=== PATIENT | female | born 1960 | race Caucasian/White ===

== ENCOUNTER 2016-10-22 22:33 | Emergency (ER) | payer SELFPAY ==
[2016-10-22] MEDS ORDERED: HYDROCOD/APAP 5/325 PREPACK#6 BTL TAKEHOME ONE (22:53)
[2016-10-22 22:54] VITALS: BP 151/73; PULSE 79; RESP 16; TEMP 97.7; O2SAT 95
[2016-10-22] MEDS ORDERED: ONDANSETRON 4MG PREPACK#2 BTL TAKEHOME ONE (22:54)
--- NOTE | 2016-10-22 22:59 | UCPHY ---
H & P Time Seen by Provider: 10/22/16 22:47 Patient Type: New HPI/ROS: This patient reports a gradual onset of upper bilateral thoracic back pain , achy in nature over the past 2 weeks this is a bit worse when she lifts items this is currently moderate intensity. She has been taking ibuprofen regularly without complete relief. She has had similar pains in the past and had some improvement with steroid injection to her spine and inquires affected provide that procedure. ROS: No numbness tingling or focal weakness. No other neuro symptoms. No recent acute trauma. She reports no pulmonary symptoms. No pleuritic pain. No lightheadedness or other cardiovascular symptoms. No other complaints 7 point ROS is otherwise negative. Past Medical/Surgical History: Kyphosis Smoking Status: Current every day smoker Physical Exam: Physical Exam Vital signs are normal. General: No acute distress HEENT: Atraumatic. Eyes: Pupils equal and react to light. Extraocular motions are intact. Neck: Supple with no midline tenderness. She has mild increase in thoracic pain with forward flexion of her neck. Thoracic back: Positive for kyphosis. She has bilateral paraspinous muscular tenderness in the upper thoracic region with no significant midline spine tenderness. No lumbar tenderness. Lungs: No respiratory distress. Cardiac: Brisk capillary refill is intact throughout. Pulses are 2+ and symmetric in the affected extremity. Skin: No rash or pallor. Neuro: Alert and oriented x3 . She maintains normal light touch sensory exam bilateral upper and lower extremities, 5/5 strength bilateral upper and lower extremities and 2+ symmetric patellar Achilles, biceps, triceps and brachioradialis DTRs bilaterally. No sensorimotor deficits are appreciated Initial differential diagnosis: Muscle strain, disc herniation without radiculopathy, degenerative disc disease Constitutional: Initial Vital Signs Temperature (C) 36.5 C 10/22/16 22:40 Heart Rate 79 10/22/16 22:40 Respiratory Rate 16 10/22/16 22:40 Blood Pressure 151/73 H 10/22/16 22:40 O2 Sat (%) 95 10/22/16 22:40 O2 Delivery Mode Room Air Allergies/Adverse Reactions: No Known Allergies Allergy (Verified 10/22/16 22:49) Home Medications: Medication Instructions Recorded Advair 250/50 (*) 10/22/16 Albuterol Hfa Anes Only 10/22/16 Hydrocodone/APAP 5/325 [[place] 1 - 2 tab PO Q4PRN PRN #20 tab 10/22/16 5/325 (*)] Methocarbamol [Robaxin 750 mg (*)] 750 - 1,500 mg PO QID PRN #30 tab 10/22/16 Microgestin 10/22/16 Ondansetron Odt [Zofran Odt] 4 - 8 mg PO Q4PRN PRN #4 tab 10/22/16 busPIRone 10/22/16 MDM/Departure - MDM Medications Given: Discontinued Medications Hydrocodone Bitart/Acetaminophen ([place] 5/325mg Prepack#6) 1 btl TAKEHOME EDNOW ONE Stop: 10/22/16 22:54 Last Admin: 10/22/16 23:03 Dose: 1 btl Ondansetron HCl (Zofran Odt 4 Mg Prepack#2) 1 btl TAKEHOME EDNOW ONE Stop: 10/22/16 22:55 Last Admin: 10/22/16 23:03 Dose: 1 btl ED Course/Re-evaluation: I explained that it do not injects spines with analgesics her steroids. I recommended follow up with wildland fire operations specialist and provided analgesics. No evidence of cauda equina, radiculopathy or other concerning findings clinically. - Depart Disposition: Home, Routine, Self-Care Clinical Impression: Thoracic back pain Qualifiers: Chronicity: acute Back pain laterality: bilateral Qualified Code(s): M54.6 - Pain in thoracic spine Condition: Good Instructions: Hydrocodone/Acetaminophen (By mouth), Ondansetron (By mouth), How to Stop Smoking (ED), Thoracic Pain (ED) Additional Instructions: Diagnosis: Upper back pain Plan: Continue ibuprofen or Aleve Add methocarbamol muscle relaxant Tylenol or Vicodin in addition if needed. No driving, alcohol work on Vicodin. Call Dr. Smart-back specialist for further evaluation and treatment if needed. Avoid heavy lifting until symptoms improve. Go to the emergency department for any significant worsening despite treatment plan Quit smoking Stand Alone Forms: Work Excuse Prescriptions: Hydrocodone/APAP 5/325 [[place] 5/325 (*)] 1 - 2 tab PO Q4PRN PRN #20 tab PRN Reason: Pain Methocarbamol [Robaxin 750 mg (*)] 750 - 1,500 mg PO QID PRN #30 tab PRN Reason: Muscle Spasms Ondansetron Odt [Zofran Odt] 4 - 8 mg PO Q4PRN PRN #4 tab PRN Reason: Vomiting Referrals: Jahaira Smart MD [Medical Doctor] - As per Instructions - PQRS PQRS Measurement: NA
== END 2016-10-22 23:11 | disposition home or self-care (01) ==
LOC: CED 22:33
DX: M54.6 Pain in thoracic spine (principal); F17.210 Nicotine dependence, cigarettes, uncomplicated
CPT/HCPCS: 99203-PO; G0463-PO

== ENCOUNTER 2016-12-17 14:17 | Emergency (ER) | payer MEDICAID ==
--- NOTE | 2016-12-17 14:40 | EDPHY ---
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 She presents reporting upper respiratory infection symptoms for the last 2-3 days with increasing headache pain, nasal congestion, postnasal drip, cough, and shortness of breath. She also has been experiencing some diarrhea. She tells me that the residence at her skilled nursing have been ill with norovirus 1 month ago and now upper respiratory infections over the last several days. Patient is a smoker. She denies a fever but states she had some chills last night. She denies any chest pain. She denies vomiting. No blood in the diarrhea. Patient states that she is wheezing in the mornings. REVIEW OF SYSTEMS: Aside from elements discussed in the HPI, a comprehensive 10-point review of systems was reviewed and is negative. PAST MEDICAL HISTORY: Hip replacement, PTSD. SOCIAL HISTORY: Smoker. VITAL SIGNS Reviewed by me. Heart rate 105.. GENERAL: Well-developed, well-nourished, occasional cough]. No obvious respiratory distress. HEENT: Atraumatic. Eyes: No icterus, no injection. TMs are clear bilaterally. Mouth: moist mucous membranes. Mild posterior erythema, no tonsillar enlargement or exudates. Neck: supple with no adenopathy. LUNGS: Wheezes and occasional rhonchi at the right base. CARDIAC: Borderline tachycardic, regular rhythm. No rubs murmurs or gallops. ABDOMEN: Soft, nontender, nondistended, bowel sounds normal. BACK: No CVA tenderness. EXTREMITIES: No trauma. No edema. Range of motion is normal throughout. NEURO: Alert and oriented, grossly nonfocal. SKIN: Slightly warm to the touch. No rash. PSYCHIATRIC: Normal mentation, no agitation. Smoking Status: Current every day smoker Constitutional: Initial Vital Signs Temperature (C) 37.4 C 12/17/16 14:26 Heart Rate 105 H 12/17/16 14:26 Respiratory Rate 16 12/17/16 14:26 Blood Pressure 139/86 H 12/17/16 14:26 O2 Sat (%) 94 12/17/16 14:26 O2 Delivery Mode Room Air Allergies/Adverse Reactions: No Known Allergies Allergy (Verified 12/17/16 14:22) Home Medications: Medication Instructions Recorded Advair 250/50 (*) 10/22/16 Albuterol Hfa Anes Only 10/22/16 Microgestin 10/22/16 busPIRone 10/22/16 Albuterol [Proventil Inhaler HFA 1 - 2 puffs IH Q4H #1 mdi 12/17/16 (*)] Alprazolam 12/17/16 Medical Decision Making ED Course/Re-evaluation: 56-year-old female presenting with mostly upper respiratory infection symptoms , cough, and wheezing on examination. She also reports a history of some diarrhea but has had no vomiting. She is taking fluids well. I discussed obtaining a chest x-ray with the patient to further evaluate her right sided wheezes. She prefers not to be treated with a chest x-ray, stating that she has had many in the past. We discussed IV placement for fluid hydration. She would prefer not to have an IV as she reports she has very small veins since difficult to place an IV. She is drinking fluids well with no vomiting. Patient was treated with a DuoNeb followed by an albuterol nebulizer treatment. She was placed on azithromycin. She was advised to get plenty of rest, drink plenty of fluid, and follow up with her primary care physician if she is not improving as expected. Patient was given a single dose of prednisone in the emergency department. Differential Diagnosis: Differential diagnosis for the patient's symptom complex was considered including but not limited to viral versus bacterial bronchitis, asthma, upper respiratory infection, lower respiratory infection, bronchospasm, viral syndrome , influenza. Departure - Departure Disposition: Home, Routine, Self-Care Clinical Impression: Bronchitis Sinusitis Qualifiers: Sinusitis location: other Chronicity: acute Recurrence: non-recurrent Qualified Code(s): J01.80 - Other acute sinusitis Diarrhea Qualifiers: Diarrhea type: unspecified type Qualified Code(s): R19.7 - Diarrhea, unspecified Condition: Good Instructions: Acute Bronchitis (ED), Rhinosinusitis (ED), Upper Respiratory Infection (ED) Additional Instructions: 1. Please drink plenty of fluid as I believe you are somewhat dehydrated. 2. Please take antibiotics as directed. 3. Please use the albuterol meter dose inhaler as directed, 2-3 puffs every 4-6 hours to help with your shortness of breath. 4. I suggest that you follow up with your orthopedic surgeon regarding your hip and knee pain. Physical therapy evaluation will also be helpful. Referrals: [facility],. [Primary Care Provider] - As per Instructions Stand Alone Forms: Work Excuse
[2016-12-17] MEDS ORDERED: predniSONE 20 MG TAB PO ONE (14:55)
[2016-12-17] MEDS ORDERED: ALBUTEROL 3 ML DEYVIAL IH ONE (14:55)
[2016-12-17] MEDS ORDERED: IPRATROPIUM/ALBUTEROL 3 ML DEYVIAL IH ONE (14:55)
[2016-12-17 15:32] VITALS: BP 161/90; PULSE 88; RESP 18; TEMP 98.6; O2SAT 96
== END 2016-12-17 15:24 | disposition home or self-care (01) ==
LOC: CED 14:17
DX: R19.7 Diarrhea, unspecified (principal); J01.80 Other acute sinusitis; J20.9 Acute bronchitis, unspecified; F17.200 Nicotine dependence, unspecified, uncomplicated

== ENCOUNTER 2017-01-23 07:39 | Emergency (ER) | payer MEDICAID ==
[2017-01-23] MEDS ORDERED: IBUPROFEN SUSP 100 MG/5 ML UDCUP PO ONE (07:56)
[2017-01-23] MEDS ORDERED: IPRATROPIUM/ALBUTEROL 3 ML DEYVIAL IH ONE (07:59)
[2017-01-23] MEDS ORDERED: NS 2,300 ML IV ONE (08:06)
--- NOTE | 2017-01-23 08:10 | EDPHY ---
H & P Stated Complaint: 3 days cough, short of breath, fever Time Seen by Provider: 01/23/17 08:00 HPI/ROS: CHIEF COMPLAINT: COUGH, FEVER HISTORY OF PRESENT ILLNESS: Patient is a 56-year-old female who comes to the emergency department complaining of a fever, cough, sinus congestion, ear pain and headache. She states that she has a history of recurrent bronchitis. She was last treated a month ago with a Z-Andrea. She felt better after few days. Her symptoms returned over the last few days. 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 She did receive a flu vaccination this year. She denies abdominal pain nausea vomiting. She also has frequent diarrhea but states that this is baseline. No urinary symptoms. No chest pain. REVIEW OF SYSTEMS: Constitutional: See HPI EENTM: denies: blurred vision, double vision, nose congestion Respiratory: See HPI Cardiac: denies: chest pain, irregular heart rate, lightheadedness, palpitations Gastrointestinal/Abdominal: denies: abdominal pain, diarrhea, nausea, vomiting, blood streaked stools Genitourinary: denies: dysuria, frequency, hematuria, pain Musculoskeletal: denies: joint pain, muscle pain Skin: denies: lesions, rash, jaundice, bruising Neurological: denies: headache, numbness, paresthesia, tingling, dizziness, weakness Hematologic/Lymphatic: denies: blood clots, easy bleeding, easy bruising Immunologic/allergic: denies: HIV/AIDS, transplant EXAM: GENERAL: Well-appearing, well-nourished and in no acute distress. HEAD: Atraumatic, normocephalic. EYES: Pupils equal round and reactive to light, extraocular movements intact, sclera anicteric, conjunctiva are normal. ENT: TMs normal, nares patent, oropharynx clear without exudates. Moist mucous membranes. NECK: Normal range of motion, supple without lymphadenopathy or JVD. LUNGS: Bilateral mild wheezing with rhonchorous breath sounds. HEART: Regular rate and rhythm without murmurs, rubs or gallops. ABDOMEN: Soft, nontender, normoactive bowel sounds. No guarding, no rebound. No masses appreciated. BACK: No CVA tenderness, no spinal tenderness, step-offs or deformities EXTREMITIES: Normal range of motion, no pitting or edema. No clubbing or cyanosis. NEUROLOGICAL: Cranial nerves II through XII grossly intact. Normal speech, normal gait. 5/5 strength, normal movement in all extremities, normal sensation PSYCH: Normal mood, normal affect. SKIN: Warm, dry, normal turgor, no visible rashes or lesions. Source: Patient Exam Limitations: No limitations - Personal History Current Tetanus/Diphtheria Vaccine: Yes - Medical/Surgical History Hx Asthma: Yes Hx Chronic Respiratory Disease: No Hx Diabetes: No Hx Cardiac Disease: No Hx Renal Disease: No Hx Cirrhosis: No Hx Alcoholism: No Hx HIV/AIDS: No Hx Splenectomy or Spleen Trauma: No Other PMH: Med hx-PTSD, Asthma. Surg-l-hip - Family History Significant Family History: No pertinent family hx - Social History Smoking Status: Current every day smoker Alcohol Use: Sober Drug Use: None Constitutional: Initial Vital Signs Temperature (C) 38.1 C 01/23/17 07:42 Heart Rate 122 H 01/23/17 07:42 Respiratory Rate 28 H 01/23/17 07:42 Blood Pressure 164/99 H 01/23/17 07:42 O2 Sat (%) 90 L 01/23/17 07:42 O2 Delivery Mode Room Air Allergies/Adverse Reactions: No Known Allergies Allergy (Verified 01/23/17 07:50) Home Medications: Medication Instructions Recorded Advair 250/50 (*) 10/22/16 Microgestin 10/22/16 busPIRone 10/22/16 Alprazolam 12/17/16 Albuterol 01/23/17 Azithromycin 250 mg PO DAILY #9 tablet 01/23/17 Promethazine HCl/Codeine 5 ml PO Q4-6PRN PRN #90 ml 01/23/17 [Prometh-Codein 6.25-10 mg/5 ml] Medical Decision Making - Diagnostics Imaging Results: Imaging Impressions Chest X-Ray 01/23/17 08:07 Impression: 1. Bronchitis. 2. No definite pneumonia. Imaging: I viewed and interpreted images myself ED Course/Re-evaluation: 9:15 a.m. the patient is feeling much better after Tylenol and a breathing treatment. Her saturations are in the mid 90s. Her tachycardia is resolved. She is requesting a longer course of azithromycin. Start her on a 10 day course. She declines further workup or treatment at this time. Differential Diagnosis: Partial list of the Differential diagnosis considered include but were not limited to; bronchitis, pneumonia, upper respiratory tract infection, otitis media and although unlikely based on the history and physical exam, I also considered severe sepsis, meningitis, endocarditis. I discussed these differential diagnoses and the plan with the patient as well as the usual and expected course. The patient understands that the diagnosis is provisional and that in medicine we are not always correct and that further workup is often warranted. Usual and customary warnings were given. All of the patient's questions were answered. The patient was instructed to return to the emergency department should the symptoms at all worsen or return, otherwise to followup with the physician as we discussed. - Data Points Laboratory Results: Laboratory Results 01/23/17 08:20 01/23/17 08:20 01/23/17 01/23/17 01/23/17 08:35 08:20 08:20 WBC 9.17 10^3/uL 10^3/uL (3.80-9.50) RBC 4.19 10^6/uL 10^6/uL (4.18-5.33) Hgb 14.5 g/dL g/dL (12.6-16.3) Hct 41.0 % % (38.0-47.0) MCV 97.9 fL fL (81.5-99.8) MCH 34.6 pg H pg (27.9-34.1) MCHC 35.4 g/dL g/dL (32.4-36.7) RDW 14.2 % % (11.5-15.2) Plt Count 299 10^3/uL 10^3/uL (150-400) MPV 9.5 fL fL (8.7-11.7) Neut % (Auto) 82.4 % H % (39.3-74.2) Lymph % (Auto) 8.4 % L % (15.0-45.0) Glades % (Auto) 8.1 % % (4.5-13.0) Eos % (Auto) 0.4 % L % (0.6-7.6) Baso % (Auto) 0.4 % % (0.3-1.7) Nucleat RBC Rel Count 0.0 % % (0.0-0.2) Absolute Neuts (auto) 7.55 10^3/uL H 10^3/uL (1.70-6.50) Absolute Lymphs (auto) 0.77 10^3/uL L 10^3/uL (1.00-3.00) Absolute Monos (auto) 0.74 10^3/uL 10^3/uL (0.30-0.80) Absolute Eos (auto) 0.04 10^3/uL 10^3/uL (0.03-0.40) Absolute Basos (auto) 0.04 10^3/uL 10^3/uL (0.02-0.10) Absolute Nucleated RBC 0.00 10^3/uL 10^3/uL (0-0.01) Immature Gran % 0.3 % % (0.0-1.1) Immature Gran # 0.03 10^3/uL 10^3/uL (0.00-0.10) PT 13.8 SEC SEC (12.0-15.0) INR 1.09 (0.83-1.16) APTT 28.7 SEC SEC (23.0-38.0) VBG Lactic Acid Sodium 135 mEq/L mEq/L (134-144) Potassium 3.8 mEq/L mEq/L (3.5-5.2) Chloride 104 mEq/L mEq/L (97-110) Carbon Dioxide 17 mEq/l L mEq/l (22-31) Anion Gap 14 mEq/L mEq/L (8-16) BUN 6 mg/dL L mg/dL (7-23) Creatinine 0.8 mg/dL mg/dL (0.6-1.0) Estimated GFR > 60 Glucose 131 mg/dL H mg/dL (70-100) Calcium 8.5 mg/dL mg/dL (8.5-10.4) Total Bilirubin 0.7 mg/dL mg/dL (0.1-1.4) 01/23/17 08:20 WBC RBC Hgb Hct MCV MCH MCHC RDW Plt Count MPV Neut % (Auto) Lymph % (Auto) Glades % (Auto) Eos % (Auto) Baso % (Auto) Nucleat RBC Rel Count Absolute Neuts (auto) Absolute Lymphs (auto) Absolute Monos (auto) Absolute Eos (auto) Absolute Basos (auto) Absolute Nucleated RBC Immature Gran % Immature Gran # PT INR APTT VBG Lactic Acid 0.9 mmol/L mmol/L (0.7-2.1) Sodium Potassium Chloride Carbon Dioxide Anion Gap BUN Creatinine Estimated GFR Glucose Calcium Total Bilirubin Medications Given: Discontinued Medications Albuterol Sulfate (Proventil Inh Prepack) 1 mdi TAKEHOME EDNOW ONE Stop: 01/23/17 09:18 Last Admin: 01/23/17 09:33 Dose: 1 mdi Albuterol/Ipratropium (Duoneb) 3 ml IH EDNOW ONE Stop: 01/23/17 08:00 Last Admin: 01/23/17 08:14 Dose: 3 ml Azithromycin (Zithromax) 500 mg PO EDNOW ONE PRN Reason: Protocol Stop: 01/23/17 09:16 Last Admin: 01/23/17 09:25 Dose: 500 mg Sodium Chloride (Ns) 2,300 mls @ 4,600 mls/hr 30 ml/kg infuse over 30 min ( 2300 ml) IV EDNOW ONE PRN Reason: Protocol Stop: 01/23/17 08:35 Last Admin: 01/23/17 08:40 Dose: 2,300 mls Ibuprofen (Motrin Oral Solution) 600 mg PO EDNOW ONE Stop: 01/23/17 07:57 Last Admin: 01/23/17 08:14 Dose: 600 mg Departure - Departure Disposition: Home, Routine, Self-Care Clinical Impression: Acute bronchitis Qualifiers: Bronchitis organism: unspecified organism Qualified Code(s): J20.9 - Acute bronchitis, unspecified Condition: Fair Instructions: Acute Bronchitis (ED) Referrals: ALFRED BROWN,Evan [Primary Care Provider] - As per Instructions Stand Alone Forms: Work Excuse Prescriptions: Azithromycin 250 mg PO DAILY #9 tablet Promethazine HCl/Codeine [Prometh-Codein 6.25-10 mg/5 ml] 5 ml PO Q4-6PRN PRN # 90 ml PRN Reason: Cough, Moderate
[2017-01-23 08:27] LABS: % IMMATURE GRANULYOCYTES 0.3 % (0.0-1.1); ABSOLUTE IMMATURE GRANULOCYTES 0.03 10^3/uL (0.00-0.10); ADD DIFF? NO; ADD MORPH? NO; ADD SCAN? NO; ATYPICAL LYMPHOCYTE FLAG 20 (0-99); FRAGMENT RBC FLAG 0 (0-99); HEMOGLOBIN 14.5 g/dL (12.6-16.3); LEFT SHIFT FLG 0 (0-99); LIPEMIA HEMOLYSIS FLAG 90 (0-99); MEAN CELL HEMOGLOBIN 34.6 pg (27.9-34.1); MEAN CELL HEMOGLOBIN CONCENTR. 35.4 g/dL (32.4-36.7); MEAN CELL VOLUME 97.9 fL (81.5-99.8); MEAN PLATELET VOLUME 9.5 fL (8.7-11.7); PLATELET CLUMPS FLAG 10 (0-99); PLATELET COUNT 299 10^3/uL (150-400); RED BLOOD CELL COUNT 4.19 10^6/uL (4.18-5.33); RED CELL DISTRIBUTION WIDTH 14.2 % (11.5-15.2)
[2017-01-23 09:01] LABS: APTT 28.7 SEC (23.0-38.0); INR 1.09 (0.83-1.16); PROTIME(PATIENT) 13.8 SEC (12.0-15.0)
[2017-01-23 09:02] LABS: ANION GAP 14 mEq/L (8-16); BILIRUBIN,TOTAL 0.7 mg/dL (0.1-1.4); CALCIUM 8.5 mg/dL (8.5-10.4); CARBON DIOXIDE 17 mEq/l (22-31); CHLORIDE 104 mEq/L (97-110); CREATININE 0.8 mg/dL (0.6-1.0); GLOMERULAR FILTRATION RATE > 60; GLUCOSE 131 mg/dL (70-100); POTASSIUM 3.8 mEq/L (3.5-5.2); SODIUM 135 mEq/L (134-144)
[2017-01-23] MEDS ORDERED: AZITHROMYCIN 250 MG TAB PO ONE (09:15)
[2017-01-23] MEDS ORDERED: ALBUTEROL INH PREPACK MDI TAKEHOME ONE (09:17)
[2017-01-23 09:20] VITALS: RESP 20
[2017-01-23 09:59] VITALS: BP 148/80; PULSE 92; TEMP 99; O2SAT 92
== END 2017-01-23 09:54 | disposition home or self-care (01) ==
LOC: CED 07:39
DX: J20.9 Acute bronchitis, unspecified (principal); F17.200 Nicotine dependence, unspecified, uncomplicated; J45.909 Unspecified asthma, uncomplicated
CPT/HCPCS: 71020-PO; 80048-PO; 82247-PO; 83605-PO; 85025-PO; 85610-PO; 85730-PO

== ENCOUNTER 2017-01-23 14:45 | Inpatient (IN) | payer MEDICAID ==
[2017-01-23] MEDS ORDERED: IPRATROPIUM/ALBUTEROL 3 ML DEYVIAL IH ONE (14:52)
[2017-01-23] MEDS ORDERED: predniSONE 20 MG TAB PO ONE (15:02)
--- NOTE | 2017-01-23 15:05 | EDPHY ---
H & P Stated Complaint: [place] [facility] [place] Seen by Provider: 01/23/17 14:52 HPI/ROS: CHIEF COMPLAINT: SHORT OF BREATH HISTORY OF PRESENT ILLNESS: This is a 56-year-old female with a history of reactive airway disease who was seen earlier today, diagnosed with bronchitis. She was treated with inhalers and given a prescription for cough syrup with codeine. She was also given a prescription for 10 days of azithromycin, medication that has worked for her in the past when she has had bronchitis. She was diagnosed with a bronchitis about a month ago and completed a Z-Andrea at that time. She states that she usually needs to be treated twice. She had been doing better but yesterday began to worsen and today states that she became markedly worse with increasing cough and fatigue. She has had intermittent fever. She Is a daily cigarette smoker, has recently cut back to 1 /2 pack per day. She returned several hours after being treated today complaining of shortness of breath. She states that she is compliant with her asthma medications. She tells me that she was intubated and hospitalized for over 2 weeks about a year ago. She does not want to be intubated again. REVIEW OF SYSTEMS: A ten point review of systems was performed and is negative with the exception of the items mentioned in the HPI. Source: Patient - Medical/Surgical History Hx Asthma: Yes Hx Chronic Respiratory Disease: No Hx Diabetes: No Hx Cardiac Disease: No Hx Renal Disease: No Hx Cirrhosis: No Hx Alcoholism: No Hx HIV/AIDS: No Hx Splenectomy or Spleen Trauma: No Other PMH: Med hx-PTSD, Asthma. Surg-l-hip - Social History Smoking Status: Current every day smoker Additional Social History: She is employed in a [employer]. - Physical Exam Exam: General Appearance: Alert. Vital signs reviewed. Blood pressure 183/91, respiratory rate 24, heart rate 112, room air pulse ox 89%. Eyes: Pupils equal and round, no conjunctival injection, no discharge. Anicteric. ENT, Mouth: Mucous membranes are moist, no oropharyngeal erythema or edema. Neck: No lymphadenopathy, supple. Trachea midline. Respiratory: Diffuse bilateral wheezing. Cardiovascular: Tachycardic,; no murmur, rub, or gallop. Gastrointestinal: Abdomen is soft and nontender, no masses or organomegaly, bowel sounds normal. Skin: Warm and dry, no rashes on exposed skin, normal color. Back: Nontender to palpation over the thoracolumbar spine. No CVAT. Extremities: No lower extremity edema, no calf tenderness or swelling. Neurological: Alert and oriented. Moving all four extremities easily and equally. Psychiatric: Normal affect. Constitutional: Initial Vital Signs Temperature (C) 37 C 01/23/17 14:50 Heart Rate 112 H 01/23/17 14:50 Respiratory Rate 24 H 01/23/17 14:50 Blood Pressure 183/91 H 01/23/17 14:50 O2 Sat (%) 89 L 01/23/17 14:50 O2 Delivery Mode Room Air O2 (L/minute) 2 Allergies/Adverse Reactions: No Known Allergies Allergy (Verified 01/23/17 14:51) Home Medications: Medication Instructions Recorded Advair 250/50 (*) 10/22/16 Microgestin 10/22/16 busPIRone 10/22/16 Alprazolam 12/17/16 Albuterol 01/23/17 Azithromycin 250 mg PO DAILY #9 tablet 01/23/17 Promethazine HCl/Codeine 5 ml PO Q4-6PRN PRN #90 ml 01/23/17 [Prometh-Codein 6.25-10 mg/5 ml] Medical Decision Making ED Course/Re-evaluation: She appears to be experiencing an asthma exacerbation. She was given a DuoNeb immediately upon arrival. She was given prednisone 60 mg orally. 3:20 p.m.: She was re-evaluated after completing the DuoNeb. She continues to be tight with wheezing. An albuterol nebulizer will be given. Room air pulse ox is now in the mid 90s. We discussed smoking cessation. She has been cutting back and now says that she is smoking 1/2 pack of cigarettes daily. She understands the importance of quitting entirely. She is interested in doing so. 4:05 p.m.: She continues with markedly diminished breath sounds and wheezing. Pulse oximetry on room air is 89-91%. She is frequently coughing. She is, as would be expected, tachypneic and tachycardic. 3rd breathing treatment will be administered. I am recommending hospitalization and she has agreed. Admission accepted by Dr. Wilson. Once bed is available transport will be arranged. 4:40 p.m.: Slight improvement in lung exam. She continues with diffuse wheezing but better air exchange. She is also oxygenating better and feels more comfortable. Continued frequent dry cough. She received an oral Vicodin for control of cough. She also received some ibuprofen for complaint of headache. Labs from earlier today been reviewed by me. 5:10 PM: [facility] here to transport patient. Stable and improved at NC. Differential Diagnosis: Shortness of breath including but not limited to pulmonary infectious process, COPD, asthma, pulmonary embolus and congestive heart failure. - Data Points Medications Given: Discontinued Medications Hydrocodone Bitart/Acetaminophen ([place] 5/325) 1 tab PO EDNOW ONE Stop: 01/23/17 15:58 Last Admin: 01/23/17 16:10 Dose: 1 tab Albuterol (Proventil Neb) 3 ml IH EDNOW ONE Stop: 01/23/17 15:23 Last Admin: 01/23/17 15:33 Dose: 3 ml Albuterol (Proventil Neb) 3 ml IH EDNOW ONE Stop: 01/23/17 16:17 Last Admin: 01/23/17 16:32 Dose: 3 ml Albuterol/Ipratropium (Duoneb) 3 ml IH EDNOW ONE Stop: 01/23/17 14:53 Last Admin: 01/23/17 14:58 Dose: 3 ml Ibuprofen (Motrin Oral Solution) 600 mg PO EDNOW ONE Stop: 01/23/17 15:58 Last Admin: 01/23/17 16:08 Dose: 600 mg Prednisone (Prednisone) 60 mg PO EDNOW ONE Stop: 01/23/17 15:03 Last Admin: 01/23/17 15:13 Dose: 60 mg Departure - Departure Disposition: [facility] Clinical Impression: Exacerbation of asthma Acute bronchitis Qualifiers: Bronchitis organism: other organism Qualified Code(s): J20.8 - Acute bronchitis due to other specified organisms Condition: Fair
[2017-01-23] MEDS ORDERED: ALBUTEROL 3 ML DEYVIAL IH ONE ×3 (15:21→16:16)
[2017-01-23] MEDS ORDERED: IBUPROFEN SUSP 100 MG/5 ML UDCUP PO ONE (15:57)
[2017-01-23] MEDS ORDERED: HYDROCODONE/APAP 5/325 TAB PO ONE (15:57)
[2017-01-23] MEDS ORDERED: ONDANSETRON DISINTEGRATING 4 MG TAB PO PRN (20:33)
[2017-01-23] MEDS ORDERED: ACETAMINOPHEN 325 MG TAB PO PRN (20:33)
[2017-01-23] MEDS ORDERED: ONDANSETRON 4 MG/2 ML VIAL IVP PRN (20:33)
[2017-01-23] MEDS ORDERED: IBUPROFEN 200 MG TAB PO PRN (20:39)
[2017-01-23] MEDS ORDERED: IMMODIUM 2 MG PO PRN (20:39)
[2017-01-23] MEDS ORDERED: LOPERAMIDE HCL 2 MG CAP PO PRN (20:54)
[2017-01-23] MEDS ORDERED: NON-FORMULARY NEW DRUG (Zolpidem Tartrate [Ambien 10 Mg] 10 MG) PO SCH (21:00)
[2017-01-23] MEDS: ALPRAZolam 1 MG TAB PO PRN (21:17)
[2017-01-23] MEDS: ALBUTEROL 3 ML DEYVIAL IH SCH (21:29)
[2017-01-23] MEDS: BUDESONIDE 0.5 MG/2 ML AMPUL.NEB IH SCH (21:29)
[2017-01-23] MEDS: ZOLPIDEM TARTRATE 5 MG TAB PO SCH (22:14)
[2017-01-23] MEDS: methylPREDNISolone SOD SUCC 125 MG/2 ML VIAL IVP SCH (22:14)
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
[2017-01-24] MEDS ORDERED: ALBUTEROL 3 ML DEYVIAL IH PRN (02:30)
[2017-01-24] MEDS: ALPRAZolam 1 MG TAB PO PRN (03:26)
[2017-01-24] MEDS ORDERED: BENZONATATE 100 MG CAP PO PRN (04:00)
[2017-01-24] MEDS: IBUPROFEN SUSP 100 MG/5 ML UDCUP PO PRN ×2 (04:22→11:33)
[2017-01-24] MEDS: ALBUTEROL 3 ML DEYVIAL IH SCH ×4 (05:13→21:58)
[2017-01-24] MEDS: methylPREDNISolone SOD SUCC 125 MG/2 ML VIAL IVP SCH (05:17)
[2017-01-24] MEDS: MULTIVITAMINS 1 EACH TAB PO SCH (08:17)
[2017-01-24] MEDS: AZITHROMYCIN 250 MG TAB PO SCH (08:17)
[2017-01-24] MEDS: NORETHINDRONE AC ETH ESTRADIOL PO SCH (08:18)
[2017-01-24] MEDS: busPIRone 15 MG TAB PO SCH ×2 (09:39→17:06)
[2017-01-24] MEDS: CITALOPRAM 20 MG TAB PO SCH ×2 (09:39→17:06)
[2017-01-24] MEDS: ALPRAZolam 1 MG TAB PO SCH ×2 (11:27→17:57)
[2017-01-24] MEDS: predniSONE 20 MG TAB PO SCH (11:27)
[2017-01-24] MEDS: BUDESONIDE 0.5 MG/2 ML AMPUL.NEB IH SCH ×2 (11:47→21:58)
[2017-01-24] MEDS: guaiFENesin/CODEINE PHOS 10 ML UDCUP PO PRN ×2 (13:14→23:11)
--- NOTE | 2017-01-24 14:41 | HOSPPROG ---
Hospitalist Progress Note Assessment/Plan: This is a 56-year-old female new to my care on 01/24/2017 presenting with: # asthma exacerbation -she continues to wheeze and does not feel strong enough to go home. Will continue prednisone, azithromycin, and nebulizer treatments # posttraumatic stress disorder with anxiety -continue home medications # elevated blood pressure -monitor Disposition: The patient will be changed to inpatient status as she continues to wheeze and does not feel comfortable to go home. Subjective: patient is short of breath and continues to wheeze. She feels very weak and tired. She does not feel safe to go home. Objective: Vital Signs Temp Pulse Resp BP Pulse Ox 36.7 C 86 22 H 155/84 H 94 01/24/17 11:30 01/24/17 11:44 01/24/17 11:44 01/24/17 11:30 01/24/17 11:44 01/23/17 01/24/17 01/25/17 05:59 05:59 05:59 Intake Total 800 Balance 800 - Physical Exam Constitutional: no apparent distress, appears nourished, not in pain Cardiovascular: regular rate and rhythym, no murmur, rub, or gallop Respiratory: expiratory wheeze, respiratory distress, No reduced air movement, No rhonchi Gastrointestinal: normoactive bowel sounds, soft, non-tender abdomen, no palpable masses, No guarding, No rebound Neurologic: AAOx3, sensation intact bilaterally ICD10 Worksheet Patient Problems: Problems Problem Status Onset Acute bronchitis Acute Exacerbation of asthma Acute
[2017-01-25] MEDS: ZOLPIDEM TARTRATE 5 MG TAB PO SCH (00:05)
[2017-01-25] MEDS: IBUPROFEN SUSP 100 MG/5 ML UDCUP PO PRN (00:06)
[2017-01-25 05:11] VITALS: TEMP 98.4
[2017-01-25] MEDS: ALPRAZolam 1 MG TAB PO PRN (05:16)
[2017-01-25] MEDS: ALBUTEROL 3 ML DEYVIAL IH SCH ×2 (05:38→08:43)
[2017-01-25 07:33] VITALS: BP 152/81; PULSE 77; RESP 20
[2017-01-25] MEDS: predniSONE 20 MG TAB PO SCH (08:33)
[2017-01-25] MEDS: AZITHROMYCIN 250 MG TAB PO SCH (08:33)
[2017-01-25] MEDS: MULTIVITAMINS 1 EACH TAB PO SCH (08:33)
[2017-01-25] MEDS: NORETHINDRONE AC ETH ESTRADIOL PO SCH (08:34)
[2017-01-25] MEDS: BUDESONIDE 0.5 MG/2 ML AMPUL.NEB IH SCH (08:43)
[2017-01-25 08:57] VITALS: O2SAT 95
[2017-01-25] MEDS: CITALOPRAM 20 MG TAB PO SCH (09:47)
[2017-01-25] MEDS: guaiFENesin/CODEINE PHOS 10 ML UDCUP PO PRN (09:47)
[2017-01-25] MEDS: busPIRone 15 MG TAB PO SCH (09:47)
--- NOTE | 2017-01-25 20:55 | GDS ---
[f rep st] DISCHARGE SUMMARY DIAGNOSES: 1. Acute asthma exacerbation. 2. History of posttraumatic stress disorder with anxiety. 3. Elevated blood pressure. HOSPITAL COURSE: PROBLEM: Asthma exacerbation: The patient presented to the hospital with wheezin g. She was started on prednisone and azithromycin. On hospital day #1, she continued to feel very anxious and wheezy. She was kept in the hospital until the 12th, where she is starting to feel bett er. She has maintained adequate oxygenation on room air. PHYSICAL EXAM: VITAL SIGNS: On day of discharge, blood pressure 152/81, pulse 77, respiratory rate 20, O2 saturation 95% on room air, temperature afebrile. GENERAL: No acute distress. HEART: S1, S2. LUNGS: Clear with resolved wheezing. DISCHARGE MEDICATIONS: Please refer to discharge medication reconciliation in [facility] for details. DISCHARGE INSTRUCTIONS: The patient was discharged from the hospital where she was instructed to fo llow up with her primary care provider next week for routine hospital followup. [facility] if her condition persists or worsens. /[id number]/MODL
== END 2017-01-25 12:14 | disposition home or self-care (01) | DRG 203 ==
LOC: CED 14:45 → CEDHOLD 16:17 → F3E 17:47 → OBSVTOIN 01-24 14:41
PROVIDERS: ADMIT Internal Medicine; ATTEND Family Medicine
DX: J45.901 Unspecified asthma with (acute) exacerbation (principal); J44.9 Chronic obstructive pulmonary disease, unspecified; F17.210 Nicotine dependence, cigarettes, uncomplicated; F43.12 Post-traumatic stress disorder, chronic; F41.9 Anxiety disorder, unspecified; R03.0 Elevated blood-pressure reading, without diagnosis of hypertension; Z96.649 Presence of unspecified artificial hip joint; Z91.419 Personal history of unspecified adult abuse
CPT/HCPCS: G0378; J7626

== ENCOUNTER 2017-04-19 02:56 | Emergency (ER) | payer MEDICAID ==
--- NOTE | 2017-04-19 03:30 | EDPHY ---
H & P Stated Complaint: Scalp laceration / Head Injury Time Seen by Provider: 04/19/17 03:04 HPI/ROS: CC: [head injury, fall, scalp laceration, headache ] HPI: This is a 57-year-old female who reports taken a fall 2 or 3 days ago. She is not certain although she is certain that she has worked 2 days since then both Wednesday and Wednesday vis-a-vis yesterday and today. She describes the fall as occurring when she was trying to enter the door way from the patio while playing with the puppies. She had forgotten that there was a new screen door blocking the entrance, as she has stepped up the [address] that leads to this screen enough rather heard fashion. She recalls bounced off the screen then falling backward. But next she only recalls being of stairs in her bed being consoled by her friend. It is unclear whether there was any LOC, but her friends have been telling her that the neighbors heard her calling out for help on the patio and come over to her aid. They were able to get her up stairs into her bed. Vis-a-vis she did experience antegrade but not retrograde amnesia. That night she noted a laceration to the scalp. However this evening as she was becoming worse, see below, she started becoming worried that in fact the scalp wound might becoming infected since she did not have attended to until now. Granted, she had wash the area which was quite sensitive in the shower. The next day after the fall she did go into work. She really did not feel bad at all. His only later after that 1st day at work that she started feeling unwell with progressive headache. Along with that she developed sense of imbalance and dizziness with loss of appetite. There was no diplopia. She managed to go back to work this morning and only did so as she felt compelled to do so out of fear for her job. She did complete the work day which was her usual 7 0.5 hours. 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 This headache has developed is in the entire head as well looks extending from the occiput, the site of laceration. It is constant and steady. She has tried to treat this headache with ibuprofen but is not working successfully. She has not tried Tylenol. There is no focal motor weakness. She has had no vomiting. As to other injuries from the fall she did bruise the outer aspect of her left leg just above the ankle as well as sustained screws to bilateral forearms. She also showed me an area of the left iliac crest that is ecchymotic. Either she went to search the Internet at home or while at work with her friends , but she did find that and reasonable option would be to tight and the here together. However, the wound was so tender she cannot do so. Thus she became quite a bit worried regarding the prospect of infection. There is no active drainage. She is up-to-date with a tetanus shot within the last 5 years. ROS: Constitutional - feeling well before the fall Head see above-scalp laceration Eyes - no diplopia, blurred vision. ENT - no earache, no fluid from ear. No facial injury Neck: She complains of midline, cervical pain Thorax did not injury to chest or ribs or spine, no shortness of breath Abdominal - denies any abdomen, or back injury. No nausea. Musculoskeletal - she notes bruising to the left lower leg as well as left iliac crest but does not report chest or thoracoabdominal injuries Integument - abrasions to the forearm Neurological - see above 10 point ROS otherwise negative Source: Patient - Medical/Surgical History Hx Asthma: Yes Hx Chronic Respiratory Disease: No Hx Diabetes: No Hx Cardiac Disease: No Hx Renal Disease: No Hx Cirrhosis: No Hx Alcoholism: No Hx HIV/AIDS: No Hx Splenectomy or Spleen Trauma: No Other PMH: Med hx-PTSD, Asthma requiring intubation in 2016. Surg-l-hip, 1/2 pack a day smoker - Social History Smoking Status: Current every day smoker Alcohol Use: None Drug Use: None - Physical Exam Exam: Constitutional: Well-nourished, well-developed, no acute distress. [No odor of alcohol] Neck: There is midline tenderness at C6 and C7 as well as 2 in 3, but there is no step off. During the clinical exam she was uncomfortable and would pull away. Asking me to stop. I explained to her it was an important, relevant part of the clinical exam given the head injury. Eyes: Pupils equal and reactive. ENT: Ears are without hemotympanum. Mouth exam, atraumatic. Chest: No signs of splinting respirations. Back: Ecchymotic area over the left iliac crest in the posterior axillary line extending for approximately is 12 cm vertically and 6 cm horizontally with scant abrasion Musculoskeletal: Moves all extremities without difficulty. No joint swelling. Ecchymotic changes are present at the left iliac crest, as well as left lower leg. There is also abrasions present to the bilateral forearms. Skin: There is a 2 cm vertical laceration with matted hair in the midline of the occiput area. There is a mild associated hematoma, which is tender to touch , once again causing her to retract from the exam. Neuro: Alert and oriented with a GCS of 15. No acute distress. Psych: Awake alert and oriented. Constitutional: Initial Vital Signs Temperature (C) 36.6 C 04/19/17 03:04 Heart Rate 81 04/19/17 03:04 Respiratory Rate 16 04/19/17 03:04 Blood Pressure 158/93 H 04/19/17 03:04 O2 Sat (%) 93 04/19/17 03:04 O2 Delivery Mode Room Air Allergies/Adverse Reactions: No Known Allergies Allergy (Verified 04/19/17 03:01) Home Medications: Medication Instructions Recorded Norethindrone AC-Eth Estradiol 1 tab PO DAILY 10/22/16 [Microgestin 21 1.5-30 Tab] busPIRone [Buspar (*)] 15 mg PO BID@,16 10/22/16 ALPRAZolam [Xanax 1 MG (*)] 1 mg PO DAILY@12 12/17/16 Acetaminophen/Diphenhydramine 1 tab PO HS PRN 01/23/17 [Acetaminophen Pm Caplet] Citalopram [CeleXA 20 MG] 20 mg PO BID@11,16 01/23/17 Herbals/Supplements -Info Only 1 ea PO DAILY 01/23/17 Ibuprofen [Motrin (*)] 200 mg PO Q6 PRN 01/23/17 Immodium 2 mg PO DAILY PRN 01/23/17 Multivitamins [Multivitamin (*)] 1 tab PO DAILY 01/23/17 Zolpidem Tartrate [Ambien 10 mg] 10 mg PO HS 01/23/17 Acetaminophen [Tylenol 325mg (*)] 650 mg PO Q4HRS PRN #0 tab 01/25/17 Albuterol [Proventil Inhaler HFA 1 - 2 puffs IH Q4H PRN #1 mdi 01/25/17 (*)] Azithromycin [Zithromax] 250 mg PO DAILY #3 tab 01/25/17 Benzonatate [Tessalon Pearles] 200 mg PO TID PRN #20 cap 01/25/17 Codeine Phosphate/Guaifenesin 10 ml PO Q4 PRN #100 ml 01/25/17 [Guaiatussin AC Liquid] predniSONE 40 mg PO DAILY #10 tablet 01/25/17 Medical Decision Making ED Course/Re-evaluation: I advised a CT scan of the head and cervical spine. She has criteria for CT scanning based upon the progressive nature of her headache, interval where she was asymptomatic initially, mechanism as well as hematoma size on the occiput. Furthermore she does have midline tenderness to cervical spine, again meeting criteria for CT scanning. I attempted to explain to the need for this further testing however she thought it is best to forego that and to see how she would do expectedly without such testing unless she felt improved. Further explanations given to the patient for the rationale for diagnostic testing, and despite my cautions of need for surgery in setting of a SDH or an EDH; however she continued to want to forego any further testing. When I came to Pain Management is clear she wanted something stronger such as a narcotic. I reviewed her chart do not see a behavior consistent with drug- seeking however the [place] drug monitoring program is only current to the last 4 weeks. Nonetheless given her CT degree of symptoms it would be imprudent to give her such strong medication on several grounds that outlined for her. This included issues with respect to exacerbation of her ongoing sense of imbalance and putting at risk for subsequent fall, as well as masking underlying symptomatology in a case that has not been fully worked up. Instead I recommended she use could joined Tylenol with the Ibuprofen, as the Augmentin check her without significant risks. At that point her story changed somewhat whereby she indicates she was taking both Tylenol and ibuprofen where that was clearly not the case upon the initial triage note, as well with my initial history with her. Scalp wound is at least 48 if not 72 hours hold, it is healing well without any evidence of infection. No need for expiration indicated at this time. No need for primary closure but indeed secondary intention. I also advised her to avoid showering due to my concern regarding a patient with head injury as well as feeling lightheaded and dizzy in a warm soapy environment be predisposed of having another fall. Instead I recommended that she wash her hair in the kitchen sink. She felt that would exacerbate symptoms and did not see any problem showering as she had done so earlier this evening. She was adamant that she wanted something more for the pain, at which time I again reiterated that was not clinically indicated nor prudent given the circumstances and clinical presentation. Hopefully, with judicious rest, instead of going to work over the next few days, allowing her physical and cognitive rest, her symptoms will resolve in time as she might be dealing with significant concussive symptomatology that was exacerbated by her going to work in the setting of this head injury over the last 2 days. Thereby she is given her a note for work. She was invited to return should she have 2nd thoughts about the CT scan. Differential Diagnosis: Differential Includes but is not limited to: Concussion, head injury, subdural hematoma, epidural hematoma, intraparenchymal hemorrhage, subarachnoid hemorrhage, cervical spine sprain, cervical spine fracture dislocation. Departure - Departure Disposition: Home, Routine, Self-Care Clinical Impression: Head injury due to trauma Qualifiers: Encounter type: initial encounter Qualified Code(s): S09.90XA - Unspecified injury of head, initial encounter Brain concussion Qualifiers: Encounter type: initial encounter Loss of consciousness presence/duration: with LOC of unspecified duration Qualified Code(s): S06.0X9A - Concussion with loss of consciousness of unspecified duration, initial encounter Laceration of scalp with delay in treatment Qualifiers: Encounter type: initial encounter Qualified Code(s): S01.01XA - Laceration without foreign body of scalp, initial encounter Contusion of back Qualifiers: Encounter type: initial encounter Laterality: left Qualified Code(s): S20.222A - Contusion of left back wall of thorax, initial encounter Abrasion forearm Qualifiers: Encounter type: initial encounter Laterality: left Qualified Code(s): S50.812A - Abrasion of left forearm, initial encounter Contusion of leg, left Qualifiers: Encounter type: initial encounter Qualified Code(s): S80.12XA - Contusion of left lower leg, initial encounter Condition: Good Instructions: Laceration (ED), Concussion (ED), Head Injury (ED) Additional Instructions: I have recommended a CT scan this evening of both her head and neck due to the clinical findings. Later, if you decide to go through with the study after all , please come back. Given her symptoms, no work until released by her local family physician. See work note. Follow up with the next day or 2. Tylenol and Advil works well together the combination: Tylenol 1000 mg and 600 mg every 8 hours, as needed for your pain. Referrals: Patient,NotPresent [Primary Care Provider] - As per Instructions Stand Alone Forms: Work Excuse
[2017-04-19 04:11] VITALS: BP 158/93; PULSE 81; RESP 16; TEMP 97.9; O2SAT 93
== END 2017-04-19 04:19 | disposition home or self-care (01) ==
LOC: CED 02:56
DX: S06.0X9A Concussion with loss of consciousness of unspecified duration, initial encounter (principal); S01.01XA Laceration without foreign body of scalp, initial encounter; S20.222A Contusion of left back wall of thorax, initial encounter; S50.812A Abrasion of left forearm, initial encounter; S80.12XA Contusion of left lower leg, initial encounter; F17.200 Nicotine dependence, unspecified, uncomplicated; J45.909 Unspecified asthma, uncomplicated; W19.XXXA Unspecified fall, initial encounter

== ENCOUNTER 2017-07-24 13:14 | Emergency (ER) | payer MEDICAID ==
[2017-07-24 13:21] VITALS: RESP 16
--- NOTE | 2017-07-24 13:35 | CPEKG ---
Heart Rate: 82 RR Interval: 732 P-R Interval: 144 QRSD Interval: 74 QT Interval: 360 QTC Interval: 421 P [place]: 76 QRS [place]: 32 T Wave [place]: 61 EKG Severity - ABNORMAL ECG - EKG Impression: SINUS RHYTHM EKG Impression: CONSIDER ANTEROSEPTAL INFARCT Electronically Signed By: Feroz Fagan 26-Jul-2017 08:45:48
[2017-07-24] MEDS ORDERED: IPRATROPIUM/ALBUTEROL 3 ML DEYVIAL ONE (13:56)
[2017-07-24] MEDS ORDERED: NS 1,000 ML IV ONE ×2 (13:56)
[2017-07-24] MEDS ORDERED: IPRATROPIUM/ALBUTEROL 3 ML DEYVIAL IH ONE (13:57)
--- NOTE | 2017-07-24 14:03 | EDPHY ---
H & P Time Seen by Provider: 07/24/17 13:16 HPI/ROS: 57-year-old female presents complaining of productive cough, bilateral rib pain with cough, chills,? Fever, states she woke up in a pool sweats this morning. Review of systems As per HPI General positive fever positive chills positive fatigue no weakness HEENT no eye pain no eye discharge. No eye redness, no sore throat Respiratory positive cough positive wheezing positive shortness of breath Cardiac no chest pain, no peripheral edema GI no abdominal pain, no diarrhea, no constipation, no nausea, no vomiting no flank pain, no hematuria, no dysuria Musculoskeletal positive myalgias, no joint pain Heme no easy bruising, no easy bleeding Endo no polyuria, no polydipsia Skin no rashes, no pruritus Neuro no syncope, no dizziness, positive headaches Psych is no suicidal ideation, no homicidal ideation Past Medical/Surgical History: Depression/anxiety Nicotine dependence Asthma/COPD Bronchitis Back pain 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 Denies alcohol or drug use Smoking Status: Current every day smoker Physical Exam: 57-year-old female alert and oriented, flushed face, vital signs stable, afebrile HEENT atraumatic normocephalic, extraocular muscles intact, anicteric Oropharynx slight erythema negative exudate, tolerating her own secretions Neck supple no meningismus Lungs diffuse wheeze Heart regular rate and rhythm without murmur rub or gallop Abdomen nondistended normoactive bowel sounds soft nontender Back no CVA tenderness, no step-offs, no spinal tenderness Extremities no cyanosis clubbing or edema Neuro alert and oriented, no focal deficits Constitutional: Initial Vital Signs Temperature (C) 36.7 C 07/24/17 13:17 Heart Rate 87 07/24/17 13:17 Respiratory Rate 16 07/24/17 13:17 Blood Pressure 155/85 H 07/24/17 13:17 O2 Sat (%) 93 07/24/17 13:17 O2 Delivery Mode Room Air Allergies/Adverse Reactions: No Known Allergies Allergy (Verified 07/24/17 13:21) Home Medications: Medication Instructions Recorded Norethindrone AC-Eth Estradiol 10/22/16 [Microgestin 21 1.5-30 Tab] busPIRone [Buspar (*)] 10/22/16 ALPRAZolam [Xanax 1 MG (*)] 12/17/16 Citalopram [CeleXA 20 MG] 01/23/17 Herbals/Supplements -Info Only 01/23/17 Ibuprofen [Motrin (*)] 01/23/17 Immodium 01/23/17 Multivitamins [Multivitamin (*)] 01/23/17 Zolpidem Tartrate [Ambien 10 mg] 01/23/17 Albuterol [Proventil Inhaler HFA 07/24/17 (*)] Codeine Phosphate/Guaifenesin 15 ml PO Q6 PRN #240 ml 07/24/17 [Codeine-Guaifen 10-100 mg/5 ml] levOFLOXACIN [levAQUIN (*)] 750 mg PO DAILY #7 tab 07/24/17 predniSONE 07/24/17 Medical Decision Making ED Course/Re-evaluation: Pt seen and evaluated for productive cough, wheezing. EKG nsr, no ischemic changes CXR reticular nodular infiltrate, concerning for atypical pneumonia Labs CBC within normal limits CMP in within normal limits, exception albumin slightly low, calcium 8.5 Lactate negative Blood cultures x2 pending Rapid flu negative PCR flu negative Impression Pneumonia Asthma-given DuoNeb emergency department with resolution of wheezing Plan Discharge Discussed reticular nodule infiltrates with Infectious Disease service-Dr Anitha Darden, recommended Levaquin 750 x 7 days. Also recommended close follow-up. I explained to the patient that she has an atypical pneumonia that we will begin antibiotics for that she will need close follow-up and a repeat chest x- ray in the next 2-4 weeks. I also explained to her that if he is having increasing shortness of breath, high fevers, or feeling markedly worse that she will need to return to the emergency department for possible admission. I advised her to follow up with her primary care physician in the next 3-5 days. Differential Diagnosis: Diagnoses considered but not limited to: Bronchitis, pneumonia, asthma exacerbation, URI, influenza - Data Points Laboratory Results: Laboratory Results 07/24/17 14:10 07/24/17 14:10 Medications Given: Discontinued Medications Albuterol/Ipratropium (Duoneb) 3 ml IH EDNOW ONE Stop: 07/24/17 13:58 Last Admin: 07/24/17 14:08 Dose: 3 ml Sodium Chloride (Ns) 1,000 mls @ 0 mls/hr IV ONCE ONE PRN Reason: Wide Open Stop: 07/24/17 13:57 Last Admin: 07/24/17 14:23 Dose: Not Given Sodium Chloride (Ns) 1,000 mls @ 0 mls/hr IV ONCE ONE PRN Reason: Wide Open Stop: 07/24/17 13:57 Last Admin: 07/24/17 14:12 Dose: 1,000 mls Departure - Departure Disposition: Home, Routine, Self-Care Clinical Impression: Pneumonia, Reticulonodular infiltrate present on imaging of chest Condition: Good Instructions: Community Acquired Pneumonia (ED) Additional Instructions: Stop citalopram for the duration of antibiotic-7days. Referrals: ALFRED BROWN,. [Primary Care Provider] - As per Instructions Stand Alone Forms: Work Excuse Prescriptions: Codeine Phosphate/Guaifenesin [Codeine-Guaifen 10-100 mg/5 ml] 15 ml PO Q6 PRN # 240 ml PRN Reason: Cough, Severe levOFLOXACIN [levAQUIN (*)] 750 mg PO DAILY #7 tab
[2017-07-24 14:15] LABS: % IMMATURE GRANULYOCYTES 0.4 % (0.0-1.1); ABSOLUTE IMMATURE GRANULOCYTES 0.04 10^3/uL (0.00-0.10); ADD DIFF? NO; ADD MORPH? NO; ADD SCAN? NO; ATYPICAL LYMPHOCYTE FLAG 0 (0-99); FRAGMENT RBC FLAG 0 (0-99); HEMATOCRIT 38.3 % (38.0-47.0); HEMOGLOBIN 13.3 g/dL (12.6-16.3); LEFT SHIFT FLG 10 (0-99); LIPEMIA HEMOLYSIS FLAG 90 (0-99); MEAN CELL HEMOGLOBIN 34.5 pg (27.9-34.1); MEAN CELL HEMOGLOBIN CONCENTR. 34.7 g/dL (32.4-36.7); MEAN CELL VOLUME 99.5 fL (81.5-99.8); MEAN PLATELET VOLUME 9.1 fL (8.7-11.7); PLATELET CLUMPS FLAG 0 (0-99); PLATELET COUNT 360 10^3/uL (150-400); RED BLOOD CELL COUNT 3.85 10^6/uL (4.18-5.33); RED CELL DISTRIBUTION WIDTH 12.8 % (11.5-15.2)
[2017-07-24 14:24] VITALS: O2SAT 94
[2017-07-24 14:32] LABS: ALANINE AMINOTRANSFERASE 24 IU/L (9-52); ALBUMIN 2.9 g/dL (3.5-5.0); ALKALINE PHOSPHATASE 58 IU/L (38-126); ANION GAP 12 mEq/L (8-16); ASPARTATE AMINOTRANSFERASE 19 IU/L (14-46); BILIRUBIN,TOTAL 0.5 mg/dL (0.1-1.4); CALCIUM 8.4 mg/dL (8.5-10.4); CARBON DIOXIDE 22 mEq/l (22-31); CHLORIDE 103 mEq/L (97-110); CREATININE 0.7 mg/dL (0.6-1.0); GLOMERULAR FILTRATION RATE > 60; GLUCOSE 84 mg/dL (70-100); SODIUM 137 mEq/L (134-144); TOTAL PROTEIN 5.9 g/dL (6.3-8.2)
[2017-07-24 15:23] VITALS: PULSE 97
[2017-07-24 15:51] VITALS: BP 159/89; TEMP 98.8
== END 2017-07-24 15:51 | disposition home or self-care (01) ==
LOC: CED 13:14
DX: J18.9 Pneumonia, unspecified organism (principal); R91.8 Other nonspecific abnormal finding of lung field; J44.9 Chronic obstructive pulmonary disease, unspecified; F17.200 Nicotine dependence, unspecified, uncomplicated
CPT/HCPCS: 71020-PO; 80053-PO; 83605-PO; 85025-PO; 87400-PO

== ENCOUNTER 2017-08-03 17:45 | Emergency (ER) | payer MEDICAID ==
[2017-08-03] MEDS ORDERED: methylPREDNISolone SOD SUCC 125 MG/2 ML VIAL IVP ONE (18:06)
[2017-08-03] MEDS ORDERED: NS 1,000 ML IV ONE (18:06)
[2017-08-03] MEDS ORDERED: AZITHROMYCIN IV 500 MG in NS 250 ML IV ONE (18:06)
[2017-08-03] MEDS ORDERED: IPRATROPIUM/ALBUTEROL 3 ML DEYVIAL IH ONE (18:06)
--- NOTE | 2017-08-03 18:15 | EDPHY ---
H & P Stated Complaint: here last week given levaquin/pred - states she is worse/ cough &SOB Time Seen by Provider: 08/03/17 17:59 HPI/ROS: CHIEF COMPLAINT: Shortness of breath, cough HISTORY OF PRESENT ILLNESS: The patient is a 57-year-old female with a history of a COPD, bronchitis and nicotine dependence with a previous intubation for COPD exacerbation. She presented here 10 days ago and had it x-ray that revealed reticular nodular infiltrate concerning for atypical pneumonia versus carcinomatosis. Infectious Disease was consulted and she was started quit on Levaquin for 7 days. She finished on Wednesday. She states that it did not help and it made her feel very nauseous and had body aches. She also took 3 days of steroids. She is here requesting a Z-Andrea and states that is always worked better for her. She reports that she no longer has a fever. Her sats were 85% at triage. She used her inhaler once today about 4 hr ago. She does not wear oxygen at home. REVIEW OF SYSTEMS: Constitutional: denies: chills, fever, recent illness, recent injury EENTM: denies: blurred vision, double vision, nose congestion Respiratory: See HPI Cardiac: denies: chest pain, irregular heart rate, lightheadedness, palpitations Gastrointestinal/Abdominal: denies: abdominal pain, diarrhea, nausea, vomiting, blood streaked stools Genitourinary: denies: dysuria, frequency, hematuria, pain Musculoskeletal: denies: joint pain, muscle pain Skin: denies: lesions, rash, jaundice, bruising Neurological: denies: headache, numbness, paresthesia, tingling, dizziness, weakness Hematologic/Lymphatic: denies: blood clots, easy bleeding, easy bruising Immunologic/allergic: denies: HIV/AIDS, transplant EXAM: GENERAL: Well-appearing, well-nourished and in no acute distress. HEAD: Atraumatic, normocephalic. EYES: Pupils equal round and reactive to light, extraocular movements intact, sclera anicteric, conjunctiva are normal. ENT: TMs normal, nares patent, oropharynx clear without exudates. Moist mucous membranes. NECK: Normal range of motion, supple without lymphadenopathy or JVD. LUNGS: Bilateral wheezing no rhonchi HEART: Regular rate and rhythm without murmurs, rubs or gallops. ABDOMEN: Soft, nontender, normoactive bowel sounds. No guarding, no rebound. No masses appreciated. BACK: No CVA tenderness, no spinal tenderness, step-offs or deformities EXTREMITIES: Normal range of motion, no pitting or edema. No clubbing or cyanosis. NEUROLOGICAL: Cranial nerves II through XII grossly intact. Normal speech, normal gait. 5/5 strength, normal movement in all extremities, normal sensation PSYCH: Normal mood, normal affect. SKIN: Warm, dry, normal turgor, no visible rashes or lesions. Source: Patient Exam Limitations: No limitations - Personal History Current Tetanus Diphtheria and Acellular Pertussis (TDAP): Yes Tetanus Vaccine Date: within 10 years - Medical/Surgical History Hx Asthma: Yes Hx Chronic Respiratory Disease: No Hx Diabetes: No Hx Cardiac Disease: No Hx Renal Disease: No Hx Cirrhosis: No Hx Alcoholism: No Hx HIV/AIDS: No Hx Splenectomy or Spleen Trauma: No Other PMH: Med hx-PTSD, COPD requiring intubation in 2015. Surg-l-hip - Family History Significant Family History: No pertinent family hx - Social History Smoking Status: Current every day smoker Alcohol Use: Sober Drug Use: None Constitutional: Initial Vital Signs Temperature (C) 38 C 08/03/17 17:56 Heart Rate 96 08/03/17 17:56 Respiratory Rate 18 08/03/17 17:56 Blood Pressure 152/91 H 08/03/17 17:56 O2 Sat (%) 88 L 08/03/17 17:56 O2 Delivery Mode Nasal Cannula O2 (L/minute) 2 Allergies/Adverse Reactions: No Known Allergies Allergy (Verified 07/24/17 13:21) Home Medications: Medication Instructions Recorded Norethindrone AC-Eth Estradiol 10/22/16 [Microgestin 21 1.5-30 Tab] busPIRone [Buspar (*)] 10/22/16 ALPRAZolam [Xanax 1 MG (*)] 12/17/16 Citalopram [CeleXA 20 MG] 01/23/17 Herbals/Supplements -Info Only 01/23/17 Ibuprofen [Motrin (*)] 01/23/17 Immodium 01/23/17 Multivitamins [Multivitamin (*)] 01/23/17 Zolpidem Tartrate [Ambien 10 mg] 01/23/17 Albuterol [Proventil Inhaler HFA 07/24/17 (*)] Codeine Phosphate/Guaifenesin 15 ml PO Q6 PRN #240 ml 07/24/17 [Codeine-Guaifen 10-100 mg/5 ml] AZITHROMYCIN [Z-PACK] 250 mg PO DAILY #6 tab 08/03/17 Promethazine HCl/Codeine 5 ml PO Q4-6PRN PRN #90 ml 08/03/17 [Prometh-Codein 6.25-10 mg/5 ml] predniSONE 60 mg PO DAILY #15 tab 08/03/17 Medical Decision Making - Diagnostics Imaging Results: Imaging Impressions Chest/Thorax CTA 08/03/17 18:07 Impression: 1. No evidence of pulmonary thromboembolic disease. 2. Mixed mosaic ground-glass opacities in a peribronchovascular and subpleural distribution. In the acute setting, this may represent viral pneumonitis or acute drug reaction. Alternatively, this may represent an indolent process such as pulmonary sarcoidosis or cryptogenic organizing pneumonia. Comment: The case was discussed with Dr. Johnny Pimentel. Imaging: Discussed imaging studies w/ news videotape editor Radiologist ED Course/Re-evaluation: The patient is wheezing. I will treat her with a DuoNeb and steroids. I will start her on azithromycin initiating with an IV dose. I will obtain the CT scan that was read recommended previously and do an angiogram to rule out for PE. She denies any recent travel leg pain or swelling. Also we discussed the fact that she is hypoxic unless she improved she would require admission the hospital. She adamantly refuses this and states that she would rather and that she is DNR and that she never was to be intubated again. 7:30 p.m. the patient's oxygen saturations have improved to 94% on room air. Her wheezing is decreased. She does have rhonchi primarily on the right side. We will continue room air challenge while we await CT results. She may benefit from a another neb. 7:45 p.m. the patient's oxygen saturations are remaining above 92% on room air. She declines repeat nebulizer treatment. We discussed the CT report. I will place her on steroids and have her follow up with dentistry professor. She states that she has taken prednisone intermittently over the last several months and states that they make her feel great. She understands that this may be a chronic disease but is very relieved that it does not appear to be cancer. 8:05 p.m. I discussed the case with Dr. Rober Liu from pulmonology. He agrees to see the patient within the next few days and will have his office call. Differential Diagnosis: Partial list of the Differential diagnosis considered include but were not limited to; bronchitis, pneumonia, sarcoidosis, cryptogenic organizing pneumonia and although unlikely based on the history and physical exam, I also considered cancer, dissection, pneumothorax. I discussed these differential diagnoses and the plan with the patient as well as the usual and expected course. The patient understands that the diagnosis is provisional and that in medicine we are not always correct and that further workup is often warranted. Usual and customary warnings were given. All of the patient's questions were answered. The patient was instructed to return to the emergency department should the symptoms at all worsen or return, otherwise to followup with the physician as we discussed. - Data Points Laboratory Results: Laboratory Results 08/03/17 18:28 08/03/17 18:28 08/03/17 08/03/17 08/03/17 18:28 18:28 18:28 WBC 11.25 10^3/uL H 10^3/uL (3.80-9.50) RBC 3.73 10^6/uL L 10^6/uL (4.18-5.33) Hgb 12.9 g/dL g/dL (12.6-16.3) Hct 36.9 % L % (38.0-47.0) MCV 98.9 fL fL (81.5-99.8) MCH 34.6 pg H pg (27.9-34.1) MCHC 35.0 g/dL g/dL (32.4-36.7) RDW 12.4 % % (11.5-15.2) Plt Count 498 10^3/uL H 10^3/uL (150-400) MPV 9.1 fL fL (8.7-11.7) Neut % (Auto) 68.8 % % (39.3-74.2) Lymph % (Auto) 14.9 % L % (15.0-45.0) Bath % (Auto) 10.4 % % (4.5-13.0) Eos % (Auto) 4.8 % % (0.6-7.6) Baso % (Auto) 0.7 % % (0.3-1.7) Nucleat RBC Rel Count 0.0 % % (0.0-0.2) Absolute Neuts (auto) 7.73 10^3/uL H 10^3/uL (1.70-6.50) Absolute Lymphs (auto) 1.68 10^3/uL 10^3/uL (1.00-3.00) Absolute Monos (auto) 1.17 10^3/uL H 10^3/uL (0.30-0.80) Absolute Eos (auto) 0.54 10^3/uL H 10^3/uL (0.03-0.40) Absolute Basos (auto) 0.08 10^3/uL 10^3/uL (0.02-0.10) Absolute Nucleated RBC 0.00 10^3/uL 10^3/uL (0-0.01) Immature Gran % 0.4 % % (0.0-1.1) Immature Gran # 0.05 10^3/uL 10^3/uL (0.00-0.10) APTT 28.5 SEC SEC (23.0-38.0) Sodium 138 mEq/L mEq/L (134-144) Potassium 3.8 mEq/L mEq/L (3.5-5.2) Chloride 102 mEq/L mEq/L (97-110) Carbon Dioxide 24 mEq/l mEq/l (22-31) Anion Gap 12 mEq/L mEq/L (8-16) BUN 8 mg/dL mg/dL (7-23) Creatinine 0.8 mg/dL mg/dL (0.6-1.0) Estimated GFR > 60 Glucose 91 mg/dL mg/dL (70-100) Calcium 8.5 mg/dL mg/dL (8.5-10.4) Medications Given: Discontinued Medications Albuterol/Ipratropium (Duoneb) 3 ml IH EDNOW ONE Stop: 08/03/17 18:07 Last Admin: 08/03/17 18:24 Dose: 3 ml Azithromycin 500 mg/ Sodium (Chloride) 255 mls @ 255 mls/hr IV EDNOW ONE PRN Reason: Protocol Stop: 08/03/17 19:05 Last Admin: 08/03/17 18:24 Dose: 255 mls Sodium Chloride (Ns) 1,000 mls @ 0 mls/hr IV ONCE ONE; Wide Open PRN Reason: Protocol Stop: 08/03/17 18:07 Last Admin: 08/03/17 18:26 Dose: 1,000 mls Methylprednisolone Sodium Succinate (Solu-Medrol) 125 mg IVP EDNOW ONE Stop: 08/03/17 18:07 Last Admin: 08/03/17 18:25 Dose: 125 mg Departure - Departure Disposition: Home, Routine, Self-Care Clinical Impression: Sarcoidosis of lung Condition: Fair Instructions: Sarcoidosis (ED) Additional Instructions: Dr. Rober Liu's office will call you to set up appointment in the next few days. Call them if they do not call you. Referrals: ALFRED BROWN,. [Primary Care Provider] - As per Instructions Rober Liu MD [Medical Doctor] - 1-2 days without fail Prescriptions: AZITHROMYCIN [Z-PACK] 250 mg PO DAILY #6 tab predniSONE 60 mg PO DAILY #15 tab Promethazine HCl/Codeine [Prometh-Codein 6.25-10 mg/5 ml] 5 ml PO Q4-6PRN PRN # 90 ml PRN Reason: Cough, Moderate
[2017-08-03] MEDS ORDERED: IOPAMIDOL (ISOVUE 370) 100 ML BTL IV ONE (18:17)
[2017-08-03 18:36] LABS: % IMMATURE GRANULYOCYTES 0.4 % (0.0-1.1); ABSOLUTE IMMATURE GRANULOCYTES 0.05 10^3/uL (0.00-0.10); ADD DIFF? NO; ADD MORPH? NO; ADD SCAN? NO; ATYPICAL LYMPHOCYTE FLAG 0 (0-99); FRAGMENT RBC FLAG 0 (0-99); HEMATOCRIT 36.9 % (38.0-47.0); HEMOGLOBIN 12.9 g/dL (12.6-16.3); LEFT SHIFT FLG 0 (0-99); LIPEMIA HEMOLYSIS FLAG 90 (0-99); MEAN CELL HEMOGLOBIN 34.6 pg (27.9-34.1); MEAN CELL VOLUME 98.9 fL (81.5-99.8); MEAN PLATELET VOLUME 9.1 fL (8.7-11.7); PLATELET CLUMPS FLAG 0 (0-99); PLATELET COUNT 498 10^3/uL (150-400); RED BLOOD CELL COUNT 3.73 10^6/uL (4.18-5.33); RED CELL DISTRIBUTION WIDTH 12.4 % (11.5-15.2)
[2017-08-03 18:55] LABS: ANION GAP 12 mEq/L (8-16); CALCIUM 8.5 mg/dL (8.5-10.4); CARBON DIOXIDE 24 mEq/l (22-31); CHLORIDE 102 mEq/L (97-110); CREATININE 0.8 mg/dL (0.6-1.0); GLOMERULAR FILTRATION RATE > 60; GLUCOSE 91 mg/dL (70-100); POTASSIUM 3.8 mEq/L (3.5-5.2); SODIUM 138 mEq/L (134-144)
[2017-08-03 20:04] VITALS: RESP 20; TEMP 98.4
[2017-08-03 20:05] VITALS: BP 160/93; PULSE 85; O2SAT 92
== END 2017-08-03 20:17 | disposition home or self-care (01) ==
LOC: CED 17:45
DX: D86.0 Sarcoidosis of lung (principal); F17.200 Nicotine dependence, unspecified, uncomplicated; J44.9 Chronic obstructive pulmonary disease, unspecified; E86.9 Volume depletion, unspecified
CPT/HCPCS: 71275-PO; 80048-PO; 85025-PO; 85730-PO; 96365; J0456; J2930; Q9967

== ENCOUNTER 2017-11-15 03:01 | Emergency (ER) | payer SELFPAY ==
[2017-11-15 03:13] VITALS: BP 164/100; PULSE 86; RESP 16; TEMP 98.2; O2SAT 96
--- NOTE | 2017-11-15 03:28 | EDPHY ---
H & P Time Seen by Provider: 11/15/17 03:24 HPI/ROS: 57 yo F presents c/o right lower back pain after lifting a patient at work. 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 She states her asthma has started to act up about 4- 5 days ago she states she rarely uses her asthma medications. She also states she refuses to take steroids at this time. No fevers no chills no rashes No loss of bowel or bladder control, no numbness or tingling in her legs. Review of systems As per HPI General no fever no chills no weakness HEENT no eye pain no eye discharge. No eye redness, no sore throat Respiratory no cough, no shortness of breath Cardiac no chest pain, no peripheral edema GI no abdominal pain, no diarrhea, no constipation, no nausea, no vomiting no flank pain, no hematuria, no dysuria Musculoskeletal no myalgias, no joint pain, positive back pain Heme no easy bruising, no easy bleeding Endo no polyuria, no polydipsia Skin no rashes, no pruritus Neuro no syncope, no dizziness, no headaches Psych is no suicidal ideation, no homicidal ideation Past Medical/Surgical History: Anxiety, depression PTSD COPD/asthma Atypical pneumonia diagnosed in July 2017 initially treated as an outpatient but per patient ended up hospitalized on 08/07/2017 at [facility], she states she was inpatient for approximately 3 days. 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 Smokes tobacco Uses alcohol-unknown amount Smoking Status: Light smoker Physical Exam: 57-year-old female alert and oriented no acute distress nontoxic appearance, afebrile No respiratory distress Atraumatic normocephalic Extraocular muscles intact, anicteric Neck supple Lungs scattered wheeze, symmetrical air entry Heart regular rate and rhythm Abdomen nondistended bowel sounds present soft nontender Back-no CVA tenderness, no step-offs, no rashes no swelling no ecchymoses Tenderness to palpation right lower back paralumbar, SI joint Extremities no cyanosis clubbing or edema Neuro alert, oriented Constitutional: Initial Vital Signs Temperature (C) 36.8 C 11/15/17 03:09 Heart Rate 86 11/15/17 03:09 Respiratory Rate 16 11/15/17 03:09 Blood Pressure 164/100 H 11/15/17 03:09 O2 Sat (%) 96 11/15/17 03:09 O2 Delivery Mode Room Air Allergies/Adverse Reactions: No Known Allergies Allergy (Verified 11/15/17 03:14) Home Medications: Medication Instructions Recorded Norethindrone AC-Eth Estradiol 10/22/16 [Microgestin 21 1.5-30 Tab] busPIRone [Buspar (*)] 10/22/16 ALPRAZolam [Xanax 1 MG (*)] 12/17/16 Citalopram [CeleXA 20 MG] 01/23/17 Herbals/Supplements -Info Only 01/23/17 Ibuprofen [Motrin (*)] 01/23/17 Immodium 01/23/17 Multivitamins [Multivitamin (*)] 01/23/17 Zolpidem Tartrate [Ambien 10 mg] 01/23/17 Albuterol [Proventil Inhaler HFA 07/24/17 (*)] Hydrocodone/APAP 5/325 [[place] 1 tab PO Q8H PRN 3 Days #9 tab 11/15/17 5/325 (*)] Lidocaine [Lidoderm] 1 each TP BID PRN 5 Days #10 11/15/17 adh..patch Medical Decision Making ED Course/Re-evaluation: Patient seen and evaluated for right lower back pain began after transferring a patient at work. No neurologic signs or symptoms. Physical exam with focal right lower back tenderness. Patient given lidocaine patch in ED Patient was also given a DuoNeb for her scattered wheezing with marked relief. Impression Right lower back strain Plan Lidocaine patch RX #10 Work note for no heavy lifting this week [place] #9-one po q8 hours prn pain x 3 days Offered muscle relaxants, patient refusing at this time Advise follow up with her primary care physician if pain continues Differential Diagnosis: Differential diagnosis considered but not limited to: Lower back strain, back contusion, sacroiliitis, disc herniation - Data Points Medications Given: Miscellaneous Information (Patch Removal) 1 ea TD [id number] DAVIE Stop: 05/14/18 20:59 Last Admin: 11/15/17 03:55 Dose: 1 ea Discontinued Medications Albuterol/Ipratropium (Duoneb) 3 ml IH EDNOW ONE Stop: 11/15/17 03:40 Last Admin: 11/15/17 03:44 Dose: 3 ml Miscellaneous Medication (Icy Hot Lidocaine/Menthol 4%/1% Patch) 1 patch TD EDNOW ONE Stop: 11/15/17 03:41 Last Admin: 11/15/17 03:44 Dose: 1 patch Departure - Departure Disposition: Home, Routine, Self-Care Clinical Impression: Lower back pain Condition: Good Instructions: Low Back Strain (ED), Lower Back Exercises (ED) Referrals: NONE *PRIMARY CARE P,. [Primary Care Provider] - As per Instructions Stand Alone Forms: Work Limited Duty Prescriptions: Hydrocodone/APAP 5/325 [[place] 5/325 (*)] 1 tab PO Q8H PRN 3 Days #9 tab PRN Reason: Pain, Moderate Lidocaine [Lidoderm] 1 each TP BID PRN 5 Days #10 adh..patch PRN Reason: Pain, Moderate
[2017-11-15] MEDS ORDERED: IPRATROPIUM/ALBUTEROL 3 ML DEYVIAL IH ONE (03:39)
[2017-11-15] MEDS ORDERED: LIDOCAINE 4%/MENTHOL 1% PATCH TD ONE (03:40)
[2017-11-15] MEDS: PATCH REMOVAL 1 EA PATCH TD SCH ×2 (03:45→03:55)
== END 2017-11-15 04:17 | disposition home or self-care (01) ==
LOC: CED 03:01
DX: M54.5 Low back pain (principal); J44.9 Chronic obstructive pulmonary disease, unspecified; F17.200 Nicotine dependence, unspecified, uncomplicated